=== PATIENT | male | born 1945 | race Caucasian/White ===

== ENCOUNTER 2025-02-10 07:53 | Inpatient (IN) | payer OTHER, MEDICAID ==
[2025-02-10] VITALS (15 sets, daily range): BP systolic 128–142; BP diastolic 74–83; PULSE 59–81; RESP 12–18; TEMP 98; O2SAT 93–97
[~2025-02-10] VITALS: Ht 180.3 cm; Wt 82.7 kg
[~2025-02-10 07:53] MED LIST: ALBU108A5 IN; AMOX250C PO; ATOR40TA52 PO; CHOL20007 OR; DULO20CA PO; FER325T PO; LISI40TA16 PO; NIFE1TAB31 PO
[2025-02-10] MEDS ORDERED: KETAMINE 50mg/ML 1ml syringe ONE (09:16)
[2025-02-10] MEDS ORDERED: fentaNYL CITRATE 100 MCG/2 ML VL ONE (09:17)
[2025-02-10] MEDS ORDERED: PROPOFOL 10 MG/ML 20 ML IV ONE (09:17)
[2025-02-10] MEDS ORDERED: ePHEDrine SULFATE 50 MG/ML AMP ONE (09:17)
[2025-02-10] MEDS ORDERED: MIDAZOLAM HCL 2MG/2ML 2ml VIAL (1mg/ml) ONE (09:17)
[2025-02-10] MEDS ORDERED: GLYCOPYRROLATE 0.2 MG/ML 1ML VIAL ONE (09:17)
[2025-02-10] MEDS ORDERED: KETOROLAC TROMETH 30 MG/ML 1ML VIAL ONE (09:17)
[2025-02-10] MEDS ORDERED: MORPHINE SULF PF 5 MG/10 ML VIAL ONE (09:17)
[2025-02-10] MEDS ORDERED: ALBUTEROL SULF HFA 90MCG INH 200DOSE IN SCH (09:30)
[2025-02-10] MEDS: NIFEdipine ER 30 MG TAB PO SCH (10:00)
[2025-02-10] MEDS: LISINOPRIL 20 MG TAB PO SCH (10:00)
[2025-02-10] MEDS: ceFAZolin 2 GM/D5W50ml 50 ML IV ONE (10:10)
[2025-02-10] MEDS: TRANEXAMIC ACID 20 ML ONE (10:15)
[2025-02-10] MEDS: VANCOMYCIN HCL 1000 MG VL ONE (10:52)
[2025-02-10] MEDS: ROPIVACAINE 0.5% (5MG/ML) 20ML AMPULE IJ ONE (10:52)
[2025-02-10] MEDS: CEFEPIME 1GM/ 50ML 50 ML IV ONE (11:20)
[2025-02-10] MEDS: SODIUM CHLORIDE 0.9% 1,000 ML IV SCH (11:30)
[2025-02-10] MEDS ORDERED: oxyCODONE HCL 5MG TAB PO PRN (11:30)
[2025-02-10] MEDS ORDERED: ALBUTEROL SULF 2.5 MG/0.5ML(0.5%) NEB SOLN NEB PRN (11:45)
[2025-02-10] MEDS: ACETAMINOPHEN 325 MG TAB PO SCH (12:00)
--- NOTE | 2025-02-10 12:01 | DVH ---
CLINICAL INDICATION: INTRA OP TECHNIQUE: 1 radiographic views of the pelvis were obtained. Comparison: None FINDINGS/IMPRESSION: Postsurgical changes from right hip arthroplasty.
--- NOTE | 2025-02-10 12:07 | DVHOP2 ---
Operative Report - 2 Report Details Date: 02/10/25 Preop Diagnosis: Right hip degenerative arthritis Postop Diagnosis: Right hip degenerative arthritis Surgeon: Yuliya Hampton MD Hemming And Tacking Machine Operator: Naomi SALOMON Anesthesiologist: Juan Anesthesia: Regional Drains: Barney closed wound Implant: Javier cup size 54, flat polyethylene liner, DonJoy origin stem size 14, minus four neck length with 36 ceramic head Consent: The patient was informed of the risks and benefits of the procedure. These include but are not limited to complications of anesthesia, postoperative infection, incomplete relief of symptoms, recurrence of symptoms, damage to blood vessels, nerves and tendons, deep venous thrombosis, pulmonary embolism and possible need for repeat surgery in the future. Complications: None Estimated Blood Loss: 50 cc Fluids: See anesthesia record Findings: Osteophytes, head deformity, denuded cartilage with eburnated bone Indications for Surgery: Right hip severe degenerative arthritis with severe pain and functional impairment despite nonoperative management Name of Procedure Performed Right total hip arthroplasty Procedure Details Procedure Details: The patient was brought to the operating room and given spinal anesthetic with adequate analgesia obtained. The patient was positioned lateral decubitus with the operative side up, stabilized with hip positioners. Axillary roll applied and lower extremities well-padded. Preop patient received IV Ancef, cefepime and IV tranexamic acid. Surgical timeout was performed verifying patient, laterality and procedure. The hip and lower extremity were prepped and draped in sterile fashion. Incision was made over the greater trochanter. Subcutaneous dissection and hemostasis were performed with Bovie and aqua mantis. I identified the fascia which was incised with Bovie and Charnley retractor inserted. I identified the gluteus medius that was split at the junction of its anterior and middle thirds with Bovie then incised off the anterior greater trochanter. I incised the anterior gluteus minimus which was elevated off the capsule. I elevated the reflected head of the rectus. I then performed anterior capsulectomy with Bovie. I extended capsular incision posterior medially and superior laterally. The head was dislocated. Femoral neck cut was made with saw and head removed. Head diameter was calipered on the back table. I adjusted retractors to expose the acetabulum. I circumferentially removed labral tissue with Bovie. I removed foveal tissue with Bovie, curette and rongeur. I then began reaming sequentially paying attention to inclination and version as I went. I trialed which was stable so acetabular implant was brought into the field and tapped into the acetabulum with good fixation achieved. I then brought up the flat liner which was spun to make sure there was no soft tissue entrapment then tapped in and stability verified. I then brought my attention to the proximal femur. The leg was placed in the sterile bag anteriorly. I cleaned up soft tissue at the greater trochanter shoulder with Bovie. I then used a rongeur to clip the lateral neck. I then used a box osteotome, canal finder and lateralizing rasp. I sequentially broached to size 14. I trialed with a [0 and minus four] neck length and [36] head. Hip was stable with a minus four and it was too difficult to reduce the 0 neck length.. Intraoperative AP pelvis x-ray was obtained to verify length, offset and implant size. The hip was dislocated. Neck and head trial removed. I revised the femoral neck cut with calcar planer. Broach was removed. I tapped in the femoral implant with good fixation achieved. I cleaned and dried the Singh taper and tapped on the ceramic head. The hip was again reduced and tested for stability which was good. I irrigated with xperience. I placed a 2 grams of vancomycin in the deep and superficial wound. I repaired the minimus and medius to the anterior greater trochanter with #[5] FiberWire in running fashion . I oversewed the repair with 0 Vicryl. I repaired the fascia with #1 Ethibond interrupted [id number]. Deep subcutaneous tissue was closed with 0 Vicryl. Superficial subcutaneous tissue was closed with 2-0 Vicryl. The skin was closed with dev. I then applied the Barney closed wound suction. Patient tolerated the procedure well and was brought to the recovery room in stable condition. Condition Stable Disposition Still a Patient YULIYA HAMPTON MD Feb 10, 2025 12:07
[2025-02-10] MEDS ORDERED: DexAMETHasone SOD PHOS 10MG/1ML VIAL INJ IV PRN (12:15)
[2025-02-10] MEDS: ONDANSETRON HCL 4 MG/2 ML VIAL IV ONE (12:15)
[2025-02-10] MEDS ORDERED: ONDANSETRON HCL 4 MG/2 ML VIAL IV PRN ×2 (12:15→18:01)
[2025-02-10] MEDS ORDERED: KETOROLAC TROMETH 30 MG/ML 1ML VIAL IV PRN (12:15)
[2025-02-10] MEDS ORDERED: diphenhdrAMINE HCL 50 MG/1 ML VL IV PRN (12:15)
[2025-02-10] MEDS ORDERED: NALOXONE HCL 0.4 MG/ML VIAL IV PRN (12:15)
--- NOTE | 2025-02-10 12:43 | DVH ---
EXAM: XY PELVIS AP CLINICAL INDICATION: postop TECHNIQUE: XY PELVIS AP Comparison: XY PELVIS AP on DOS: 02/10/25 FINDINGS/IMPRESSION: Right total hip arthroplasty. The visualized joint space is well maintained. The alignment is anatomical. There is no radiopaque foreign body.
[2025-02-10] MEDS ORDERED: ceFAZolin 2 GM/D5W50ml 50 ML IV SCH (14:00)
[2025-02-10] MEDS ORDERED: DORZ1SOL3 (14:47)
[2025-02-10] MEDS ORDERED: FLUT50SP NAS (14:47)
[2025-02-10] MEDS ORDERED: APIX2.5T PO (14:47)
[2025-02-10] MEDS ORDERED: HYDR-4072 (14:47)
[2025-02-10] MEDS: ceFAZolin 2 GM/D5W50ml 50 ML IV SCH (18:35)
[2025-02-10] MEDS: KETOROLAC TROMETH 30 MG/ML 1ML VIAL IV SCH (18:35)
[2025-02-10] MEDS: PREGABALIN 25 MG CAP PO SCH (20:55)
[2025-02-11] VITALS (19 sets, daily range): BP systolic 126–147; BP diastolic 65–87; PULSE 64–93; RESP 14–18; TEMP 97.8–98.1; O2SAT 92–98
[2025-02-11] MEDS: oxyCODONE HCL 5MG TAB PO PRN (00:47)
[2025-02-11 06:56] LABS: Potassium 4.4 mmol/L (3.5-5.1); Sodium 140 mmol/L (136-145)
[2025-02-11 06:57] LABS: Anion Gap 7 (5-15); Basophils # (auto) 0 10 ^3/uL (0-0.2); Calcium 9.2 mg/dL (8.7-10.4); Carbon Dioxide 25 mmol/L (20-31); Eosinophils # (auto) 0 10 ^3/uL (0-0.8); Monocytes # (auto) 0.5 10 ^3/uL (0-1.3)
[2025-02-11 06:59] LABS: Chloride 108 mmol/L (98-107)
[2025-02-11 07:00] LABS: Hemoglobin 9.5 g/dL (13.5-17.5); Lymphocytes # (auto) 0.7 10 ^3/uL (0.4-5.4); Lymphocytes % (auto) 9.9 % (10.0-50.0); Mean Corpuscular Hemoglobin 21.7 pg (28.0-32.0); Mean Corpuscular Hgb Conc. 32.6 g/dL (32.0-36.0); Mean Corpuscular Volume 66.4 fL (80.0-100.0); Monocytes % (auto) 7.6 % (0.0-12.0); Neutrophils # (auto) 5.4 10 ^3/uL (1.6-8.6); Neutrophils % (auto) 82.5 % (37.0-80.0); Platelet Count (auto) 170 10^3/uL (140-450); Red Blood Cells 4.36 10^6/uL (4.5-5.90); Red Cell Distribution Width 16.8 % (11.8-14.3); White Blood Cell 6.6 10^3/uL (4.4-10.8)
[2025-02-11 07:02] LABS: BUN/Creatinine Ratio 16.4 (10.0-20.0); Blood Urea Nitrogen 23 mg/dL (9-23); Glucose 147 mg/dL (74-106)
[2025-02-11] MEDS: APIXABAN 2.5 MG TAB PO SCH (10:36)
--- NOTE | 2025-02-11 16:40 | DVHDS2 ---
Discharge Summary Date of Admission Feb 10, 2025 at 11:28 Date of Discharge: February 11, 2025 Labs/Diagnostic Data: Laboratory Results Test 02/11/25 06:00 02/10/25 12:23 White Blood Count 6.6 10^3/uL (4.4-10.8) Red Blood Count 4.36 10^6/uL (4.5-5.90) Hemoglobin 9.5 g/dL (13.5-17.5) Hematocrit 29.0 % (41.0-53.0) Mean Corpuscular Volume 66.4 fL (80.0-100.0) Mean Corpuscular Hemoglobin 21.7 pg (28.0-32.0) Mean Corpuscular Hemoglobin Concent 32.6 g/dL (32.0-36.0) Red Cell Distribution Width 16.8 % (11.8-14.3) Platelet Count 170 10^3/uL (140-450) Mean Platelet Volume 7.8 fL (6.9-10.8) Neutrophils (%) (Auto) 82.5 % (37.0-80.0) Lymphocytes (%) (Auto) 9.9 % (10.0-50.0) Monocytes (%) (Auto) 7.6 % (0.0-12.0) Eosinophils (%) (Auto) 0.0 % (0.0-7.0) Basophils (%) (Auto) 0.0 % (0.0-2.0) Neutrophils # (Auto) 5.4 10 ^3/uL (1.6-8.6) Lymphocytes # (Auto) 0.7 10 ^3/uL (0.4-5.4) Monocytes # (Auto) 0.5 10 ^3/uL (0-1.3) Eosinophils # (Auto) 0 10 ^3/uL (0-0.8) Basophils # (Auto) 0 10 ^3/uL (0-0.2) Nucleated Red Blood Cells 0.0 % Sodium Level 140 mmol/L (136-145) Potassium Level 4.4 mmol/L (3.5-5.1) Chloride Level 108 mmol/L (98-107) Carbon Dioxide Level 25 mmol/L (20-31) Anion Gap 7 (5-15) Blood Urea Nitrogen 23 mg/dL (9-23) Creatinine 1.40 mg/dL (0.700-1.30) Glomerular Filtration Rate Calc 51 mL/min (>90) BUN/Creatinine Ratio 16.4 (10.0-20.0) Serum Glucose 147 mg/dL (74-106) Calcium Level 9.2 mg/dL (8.7-10.4) POC Glucose 106 mg/dl (70-106) Other Laboratory Tests 02/11/25 06:00 Brief Hx & Hospital Course: Patient was brought to the hospital yesterday to undergo a total hip arthroplasty. He tolerated the procedure well without complications and was kept overnight for postoperative observation. He has remained medically stable denying any overnight events and reports some mild postoperative hip pain that is being well managed with the help of pain medication. Patient reports that he was able to get up and walk with the help of physical therapy and his walker and was able to get down the white around the nurses station and back to his bed with minimal pain. Patient is otherwise feeling well denying any other complaints or concerns during my evaluation and is ready to go home. Condition at Discharge: Stable Final Diagnosis/Problems List Right hip degenerative arthritis Discharge Disposition: Home Discharge Statement: "Patient was advised to return to the ER or call 911 if any headaches, dizziness, shortness of breath, chest pain, abdominal pain, bleeding, fevers, or worsening of medical condition. Patient was counseled about treatment plan, medications, possible side effects, patient�verbalized understanding. All questions were answered to the best of my ability. This discharge took greater then 30 minutes in planning, reviewing documentation, counseling the patient, and discussing with other team members." ASSESSMENT ASSESSMENT Assessment Right hip degenerative arthritis TACOS MOLINA February 11, 2025 16:40
--- NOTE | 2025-02-11 16:42 | DVHPN2 ---
Progress Note - Dictate Date Seen: February 11, 2025 Medical Necessity Reason Pt with a Central, PICC or Fol: No Subjective Patient was lying comfortably in bed during my evaluation reports some postoperative hip pain that is being well managed with the help of pain medication. Patient reports that he was able to get up and walk with the help of physical therapy and his walker yesterday as well as today and was able to get down the white around the nurses station and back to his bed with minimal pain. Patient is otherwise feeling well denying any other complaints or concerns during my evaluation and would like to go home. vital signs Vital Sign Date Time Temp Pulse Resp B/P (MAP) Pulse Ox O2 Delivery O2 Flow Rate FiO2 02/11/25 16:32 97.8 67 16 142/87 (105) 98 97.8 02/11/25 08:00 Room Air* 0 21 Total Intake and Output 02/10/25 02/10/25 02/11/25 15:00 23:00 07:00 Intake Total 220 ml 480 ml 800 ml Output Total 250 ml 50 ml 1500 ml Balance -30 ml 430 ml -700 ml medications Current Medications Medications Dose Ordered Sig/Courtney Route Start Time Stop Time Status Last Admin Dose Admin Albuterol 108 mcg PRN IN 02/10/25 09:30 Cancel Nifedipine 30 mg DAILY PO 02/10/25 10:00 02/11/25 10:40 30 MG Patient Own Medication 20 mg DAILY PO 02/10/25 10:00 Lisinopril 40 mg DAILY PO 02/10/25 10:00 02/11/25 10:39 40 MG Albuterol 2.5 mg Q4HPRN PRN NEB 02/10/25 11:45 Pregabalin 50 mg BID PO 02/10/25 22:00 02/11/25 10:36 50 MG Apixaban 2.5 mg BID PO 02/11/25 10:00 03/18/25 09:59 02/11/25 10:36 2.5 MG Sodium Chloride 1,000 ml @ 125 mls/hr Q8H IV 02/10/25 11:30 02/11/25 05:22 125 MLS/HR Acetaminophen 650 mg Q6HP PO 02/10/25 12:00 02/11/25 13:08 650 MG Ketorolac Tromethamine 15 mg Q6HR IV 02/10/25 18:00 02/15/25 17:59 02/11/25 13:08 15 MG Ondansetron HCl 4 mg Q4HP PRN IV 02/10/25 18:01 Oxycodone HCl 5 mg Q4HP PRN PO 02/10/25 11:30 02/11/25 00:47 5 MG Oxycodone HCl 10 mg Q4HP PRN PO 02/10/25 11:30 Diphenhydramine HCl 12.5 mg Q4HP PRN IV 02/10/25 12:15 objective A&O x4 in no acute distress Hip range of motion grossly limited with pain on movement Barney dressing clean, dry, intact, and maintaining suction No distal edema or calf tenderness to palpation Neurovascularly intact with cap refill less than 2 seconds laboratory and microbiology Laboratory Tests 02/11/25 06:00 Test 02/11/25 06:00 Range/Units Serum Glucose 147 H 74-106 mg/dL Assessment/Plan Patient to be discharged home and advised to remain weight-bearing as tolerated with the assistance of a walker. I also instructed the patient to follow up with our office in 10-14 days for his 1st postoperative evaluation and to call our office if he has any questions or concerns. Rx sent via our outpatient EMR system. He understood and agreed. Plan discussed with: Patient TACOS MOLINA February 11, 2025 16:42
== END 2025-02-11 19:00 | disposition home or self-care (01) | DRG 470 ==
LOC: SUR 07:53 → OVERFLOW 11:28 → WEST WING 15:15 → TELE-WESTW 02-11 01:09
PROVIDERS: ADMIT Orthopaedic Surgery; ATTEND Orthopaedic Surgery
PROC: 0SR903Z Replacement of Right Hip Joint with Ceramic Synthetic Substitute, Open Approach (ICD-10-PCS; principal; 2025-02-10 10:01)
DX: M16.11 Unilateral primary osteoarthritis, right hip (principal); Z79.899 Other long term (current) drug therapy
CPT/HCPCS: 36415; 72170; 80048; 82962; 85025; 86850; 86900; 86901; 97116; 97163; G0378; J1885; J2250; J2704